=== PATIENT | male | born 1980 | race Caucasian/White ===

== ENCOUNTER 2021-10-25 11:42 | Emergency (ER) | payer OTHER, MEDICAID ==
[~2021-10-25] VITALS: Ht 185.4 cm; Wt 131.5 kg
[2021-10-25] MEDS ORDERED: ACE3T PO (15:29)
[2021-10-25] MEDS ORDERED: KETOROLAC TROMETH 60MG/2ML VIAL IM ONE (15:30)
[2021-10-25 16:01] VITALS: BP 131/88
== END 2021-10-25 16:10 | disposition home or self-care (01) ==
LOC: ER 11:42
DX: S69.91XA Unspecified injury of right wrist, hand and finger(s), initial encounter (principal); F17.210 Nicotine dependence, cigarettes, uncomplicated; W23.0XXA Caught, crushed, jammed, or pinched between moving objects, initial encounter; Y93.89 Activity, other specified; Y92.89 Other specified places as the place of occurrence of the external cause; Y99.8 Other external cause status
CPT/HCPCS: 73130; 96372; 99283; J1885

== ENCOUNTER 2023-04-07 13:08 | Emergency (ER) | payer OTHER, MEDICAID ==
[~2023-04-07] VITALS: Ht 185.4 cm; Wt 138.1 kg
[~2023-04-07 13:08] MED LIST: ACE3T PO
[2023-04-07 13:59] VITALS: TEMP 98; O2SAT 97
[2023-04-07] MEDS ORDERED: MORPHINE SULFATE INJ 2 MG/ml SYRG IM ONE (14:45)
[2023-04-07 14:58] VITALS: BP 156/89; PULSE 92; RESP 18
[2023-04-07] MEDS ORDERED: DOCU-94 PO (15:10)
[2023-04-07] MEDS ORDERED: NAP500T PO (15:10)
[2023-04-07] MEDS ORDERED: HYDR-4902 PO (15:10)
[2023-04-08] MEDS ORDERED: HYDR-4902 PO ×6 (13:10→14:01)
== END 2023-04-07 15:28 | disposition home or self-care (01) ==
LOC: ER 13:08
DX: S22.32XA Fracture of one rib, left side, initial encounter for closed fracture (principal); S30.1XXA Contusion of abdominal wall, initial encounter; F17.210 Nicotine dependence, cigarettes, uncomplicated; X58.XXXA Exposure to other specified factors, initial encounter; Y93.89 Activity, other specified; Y92.89 Other specified places as the place of occurrence of the external cause; Y99.8 Other external cause status
CPT/HCPCS: 71250; 74176; 96372; 99285; J2270